=== PATIENT | male | born 1950 | race Caucasian/White ===

== ENCOUNTER 2020-02-23 08:33 | Day surgery (SDC) | payer MEDICARE ==
[~2020-02-23 08:33] MED LIST: DIPRIVAN 200 MG/20 ML IV ONE; Ketamine HCl 50 MG/ML ONE
[2020-02-23] MEDS ORDERED: Xylocaine-Mpf 2% 5 Ml Vial IJ ONE (08:34)
[2020-02-23] MEDS ORDERED: Depo-Medrol 40 MG/ML IM ONE (08:34)
--- NOTE | 2020-02-23 10:48 | XRAY ---
Indication: Bilateral L4-S1 MBB. Intraoperative fluoroscopy provided for 1 minute 6 seconds. Single digital spot image submitted for interpretation demonstrates posterior needle tips projecting over the expected left and right L4-S1 nerve roots. Correlate with intraoperative findings/report. Incidental incompletely visualized multilevel bilateral pedicle screws/Mora rods.
--- NOTE | 2020-02-23 10:53 | XRAY ---
1 minute and 6 seconds fluoroscopy time in surgery for bilateral L4-S1 MBB.
[2020-02-23] MEDS ORDERED: Lactated Ringers 1,000 ML IV ONE (13:43)
== END 2020-02-23 10:16 | disposition home or self-care (01) ==
LOC: SDC-PAIN 08:33
PROVIDERS: ATTEND Psychiatry & Neurology Pain Medicine
DX: M47.816 Spondylosis without myelopathy or radiculopathy, lumbar region (principal); E11.9 Type 2 diabetes mellitus without complications; I10 Essential (primary) hypertension; G62.9 Polyneuropathy, unspecified; Z79.899 Other long term (current) drug therapy
CPT/HCPCS: 72020; 77002; 82962; J1030; J2704

== ENCOUNTER 2020-03-08 07:52 | Day surgery (SDC) | payer MEDICARE ==
[2020-03-08] MEDS ORDERED: BUPIVACAINE 0.5% VIAL IJ ONE (07:53)
--- NOTE | 2020-03-08 12:10 | XRAY ---
Indication: Bilateral L4-S1 MBB. Intraoperative fluoroscopy was provided for 22 seconds. Single digital spot image submitted for interpretation demonstrates posterior needle tips projecting over the expected left and right L4-S1 nerve roots. Correlate with intraoperative findings/report. Incidental incompletely visualized multilevel bilateral pedicle screws/Mora rods.
[2020-03-08] MEDS ORDERED: Lactated Ringers 1,000 ML IV ONE (13:47)
--- NOTE | 2020-03-08 17:05 | XRAY ---
22 seconds of fluoroscopy was used in surgery for a bilateral L4-L5, L5-S1 MBB.
== END 2020-03-08 10:18 | disposition home or self-care (01) ==
LOC: SDC-PAIN 07:52
PROVIDERS: ATTEND Psychiatry & Neurology Pain Medicine
DX: M47.816 Spondylosis without myelopathy or radiculopathy, lumbar region (principal); E11.9 Type 2 diabetes mellitus without complications; I10 Essential (primary) hypertension; G62.9 Polyneuropathy, unspecified; Z79.899 Other long term (current) drug therapy
CPT/HCPCS: 64493; 64494; 72020; 77002; 82962; J2704

== ENCOUNTER 2020-03-22 07:31 | Day surgery (SDC) | payer MEDICARE ==
[2020-03-22] MEDS ORDERED: Depo-Medrol 40 MG/ML IM ONE (07:32)
[2020-03-22] MEDS ORDERED: Xylocaine 1% Vial 30 ML PF IJ ONE (07:32)
[2020-03-22] MEDS ORDERED: BUPIVACAINE 0.5% VIAL IJ ONE (07:32)
[2020-03-22] MEDS ORDERED: DIPRIVAN 200 MG/20 ML IV ONE (08:39)
[2020-03-22] MEDS ORDERED: Ketamine HCl 50 MG/ML ONE (08:43)
--- NOTE | 2020-03-22 10:12 | XRAY ---
Indication: Right L4-S1 RFA. Intraoperative fluoroscopy was provided for 1 minute 1 second. 2 digital spot images submitted for interpretation demonstrates posterior needle tips projecting over the expected right L4-S1 nerve roots. Correlate with intraoperative findings/report. Incidental incompletely visualized bilateral posterior spinal fusion hardware.
--- NOTE | 2020-03-22 10:14 | XRAY ---
1 minute and 1 second fluoroscopy time in surgery for right L4-S1 RFA.
[2020-03-22] MEDS ORDERED: Lactated Ringers 1,000 ML IV ONE (16:45)
== END 2020-03-22 09:45 | disposition home or self-care (01) ==
LOC: SDC-PAIN 07:31
PROVIDERS: ATTEND Psychiatry & Neurology Pain Medicine
DX: M47.816 Spondylosis without myelopathy or radiculopathy, lumbar region (principal); E11.9 Type 2 diabetes mellitus without complications; I10 Essential (primary) hypertension; G62.9 Polyneuropathy, unspecified; Z79.899 Other long term (current) drug therapy
CPT/HCPCS: 64493; 64494; 72100; 77002; 82947; 82962; J1030; J2001; J2704

== ENCOUNTER 2020-03-29 07:34 | Day surgery (SDC) | payer MEDICARE ==
[2020-03-29] MEDS ORDERED: Xylocaine 1% Vial 30 ML PF IJ ONE (07:35)
[2020-03-29] MEDS ORDERED: Depo-Medrol 40 MG/ML IM ONE (07:35)
[2020-03-29] MEDS ORDERED: BUPIVACAINE 0.5% VIAL IJ ONE (07:35)
[2020-03-29] MEDS ORDERED: DIPRIVAN 200 MG/20 ML IV ONE (08:01)
[2020-03-29] MEDS ORDERED: Ketamine HCl 50 MG/ML ONE (08:01)
--- NOTE | 2020-03-29 11:07 | XRAY ---
Indication: Left L4-S1 RFA. Intraoperative fluoroscopy was provided for 46 seconds. 4 digital spot images submitted for interpretation demonstrates posterior needle tips projecting over the expected left L4-S1 nerve roots. Correlate with intraoperative findings/report. Incidental incompletely visualized bilateral posterior spinal fusion hardware.
--- NOTE | 2020-03-29 11:12 | XRAY ---
46 seconds fluoroscopy time in surgery for left L4-S1 RFA.
[2020-03-29] MEDS ORDERED: Lactated Ringers 1,000 ML IV ONE (15:13)
== END 2020-03-29 09:40 | disposition home or self-care (01) ==
LOC: SDC-PAIN 07:34
PROVIDERS: ATTEND Psychiatry & Neurology Pain Medicine
DX: M47.816 Spondylosis without myelopathy or radiculopathy, lumbar region (principal); E11.9 Type 2 diabetes mellitus without complications; I10 Essential (primary) hypertension; G62.9 Polyneuropathy, unspecified; Z79.899 Other long term (current) drug therapy
CPT/HCPCS: 64635; 64636; 72100; 77002; 82947; 82962; J1030; J2001; J2704

== ENCOUNTER 2020-05-31 08:07 | Day surgery (SDC) | payer MEDICARE ==
[2020-05-31] MEDS ORDERED: Depo-Medrol 40 MG/ML IM ONE (08:08)
[2020-05-31] MEDS ORDERED: Sodium Chloride 0.9(Preservative Free) 10 ML IJ ONE (08:08)
[2020-05-31] MEDS ORDERED: Xylocaine 1% Vial 30 ML PF IJ ONE (08:08)
[2020-05-31] MEDS ORDERED: Ketamine HCl 50 MG/ML ONE (10:11)
[2020-05-31] MEDS ORDERED: DIPRIVAN 200 MG/20 ML IV ONE (10:11)
--- NOTE | 2020-05-31 10:49 | XRAY ---
Indication: Caudal SHARON. Intraoperative fluoroscopy was provided for 1 minute 11 seconds. 4 digital spot images submitted for interpretation demonstrates posterior needle tip projecting over the mid sacrum, approximately S2. Small amount of contrast injected for needle tip placement. Correlate with intraoperative findings/report.
--- NOTE | 2020-05-31 12:20 | XRAY ---
1 minute and 11 seconds fluoroscopy time in surgery for caudal SHARON.
[2020-05-31] MEDS ORDERED: Lactated Ringers 1,000 ML IV ONE (15:26)
== END 2020-05-31 10:52 | disposition home or self-care (01) ==
LOC: SDC 08:07 → SDC-PAIN 08:07
PROVIDERS: ATTEND Psychiatry & Neurology Pain Medicine
DX: M54.16 Radiculopathy, lumbar region (principal); E11.9 Type 2 diabetes mellitus without complications; I10 Essential (primary) hypertension; G62.9 Polyneuropathy, unspecified; Z79.899 Other long term (current) drug therapy
CPT/HCPCS: 72100; 77003; 82947; J1030; J2001; J2704